=== PATIENT | male | born 1965 | race Caucasian/White ===

== ENCOUNTER → 2021-09-24 15:28 | Outpatient (CLI) | payer MEDICAID, SELFPAY | PROVIDERS: PCP Family Medicine; Visit Provider Family Medicine | DX: Z03.818 Encounter for observation for suspected exposure to other biological agents ruled out (principal) | CPT/HCPCS: 87635; U0005; U0003 ==

== ENCOUNTER 2021-11-19 17:43 | Outpatient (CLI) | payer MEDICAID, SELFPAY | END 2021-11-19 23:59 | disposition short-term general hospital (02) | PROVIDERS: Visit Provider Family Medicine | DX: Z20.822 Contact with and (suspected) exposure to COVID-19 (principal) | CPT/HCPCS: 87635; U0003; U0005 ==

== ENCOUNTER → 2023-02-09 | Outpatient (CLI) | payer MEDICARE, MEDICAID, SELFPAY ==
[2023-02-09 07:36] LABS: Absolute Lymphocyte Count 1.91 X10^3/uL (0.83-4.51); Absolute Neutrophil Count 3.6 X10^3/uL (2.0-7.7); Basophil# 0.05 X10^3/uL; Basophil% 0.8 % (0-1); Eosinophil# 0.23 X10^3/uL; Eosinophils% 3.5 % (0-5); Hematocrit 46.1 % (40-54); Lymphocyte # 1.91 X10^3/ul (0.83-4.51); Lymphocyte % 29.4 % (19-41); Mean Corp Hgb Conc 34.7 g/dL (32-36); Mean Corpuscular Hgb 30.4 pg (27.0-32.0); Mean Corpuscular Volume 87.6 fL (80-94); Mean Platelet Vol. 11.8 fl (6.2-12.0); Monocyte# 0.66 X10^3/uL; Monocyte% 10.2 % (0-10); NRBC Flagged by Analyzer 0 % (0-5); Neutrophil # 3.62 X10^3/uL (2.7-7.7); Neutrophil % 55.8 % (47-70); Platelet Count 159 K/mm3 (150-450); RBC Distribution Width CV 12.6 % (11.6-14.6); RBC Distribution Width SD 39.9 fl (35.1-43.9); Red Blood Count 5.26 M/mm3 (4.6-6.2); White Blood Count 6.5 K/mm3 (4.4-11.0)
[2023-02-09 08:17] LABS: Anion Gap 7 (5-15); BUN 26 mg/dL (7-18); BUN/Creat Ratio 31.2 RATIO (10-20); Calcium,Total 8.9 mg/dL (8.5-10.1); Chloride 99 mmol/L (98-107); Creatinine, Serum 0.83 mg/dL (0.70-1.30); EST Glomerular Filtration Rate 101 mL/min (>60); Est Glom Filt Rate - Afr Amer 123 mL/min (>60); Glucose 328 mg/dL (74-106); PSA,Total - Annual Screen 1.73 ng/mL (0.00-4.00); Potassium 4.2 mmol/L (3.5-5.1); Sodium Level 131 mmol/L (136-145)
[2023-02-09 10:39] LABS: Hemoglobin A1c 10.1 % (3.8-5.6)
== END | disposition home or self-care (01) ==
LOC: LAB 07:00
PROVIDERS: PCP Family Medicine; Referring Provider Family Medicine; Visit Provider Family Medicine
DX: Z00.00 Encounter for general adult medical examination without abnormal findings (principal); Z12.5 Encounter for screening for malignant neoplasm of prostate; I10 Essential (primary) hypertension; E78.00 Pure hypercholesterolemia, unspecified; R73.9 Hyperglycemia, unspecified
CPT/HCPCS: 36415; 80048; 83036; 84153; 85025; G0103

== ENCOUNTER 2023-03-18 06:19 | Day surgery (SDC) | payer MEDICARE, MEDICAID, SELFPAY ==
[2023-03-18] VITALS (7 sets, daily range): BP systolic 88–97; BP diastolic 50–65; PULSE 55–64; RESP 16; TEMP 36.5–36.6; O2SAT 95–97; BMI 31.6
[2023-03-18] MEDS: Lactated Ringers 1,000 ML 15 ML IV (06:48)
[2023-03-18 07:16] LABS: Bedside Glucose 144 mg/dL (74-106)
--- NOTE | 2023-03-18 07:17 | HP.PCM_ITS ---
History and Physical Date of Admission: 03/18/23 Date of Service:? 02/27/23 MR#: [id number] Acct: [id number] Name:? LAMONT MALONE Rep #: [id number] : 1965 ? ? Provider: Dr. Aleah Castano MD Age/Sex:? 57/M ? ? Location: [facility] Status: Signed Intake Vital Signs ? 02/27/2309:44 Height 6 ft 3 in Weight: 256 lb 3 oz BMI 32.0 BP 127/79 H Blood Pressure Location Rt radial Position Sitting Respiration 18 Pulse 60 Pulse Source Monitor Temp 97.7 F L Temp Source Temporal Intake Visit Reasons:?COLONOSCOPY Chief Complaint: colonoscopy Allergies latex Allergy (Verified 01/27/17 16:34) Rash Medications ascorbic acid (vitamin C) 500 mg tablet (Vitamin C) 500 mg PO DAILY@0800 0 06/16/16 [History Confirmed 01/27/17] aspirin 81 mg tablet,delayed release (Adult Low Dose Aspirin) 81 mg PO QHS 06/16/16 [History Confirmed 01/27/17] carvedilol 12.5 mg tablet 12.5 mg PO BID 06/16/16 [History Confirmed 01/27/17] lisinopril 2.5 mg tablet 2.5 mg PO DAILY 06/16/16 [History Confirmed 01/27/17] pravastatin 40 mg tablet 40 mg PO QHS 06/16/16 [History Confirmed 01/27/17] furosemide 20 mg tablet 20 mg PO DAILY PRN PRN EDEMA 01/27/17 [History Confirmed 01/27/17] furosemide 20 mg tablet (Lasix) 20 mg PO Q OTHER DAY 02/27/23 [History Confirmed 02/27/23] metformin 500 mg tablet 500 mg PO DAILY 02/27/23 [History Confirmed 02/27/23] PFSH Medical History?(Updated 02/27/23 @ 10:[address] Aleah Castano MD) Diabetes Heart disease History of congestive heart failure history of pace maker Hypertension Shortness of breath Family History?(Updated 02/27/23 @ 09:44 by Sania Gonzalez) Father Diabetes Social History?(Updated 02/20/19 @ 13:39 by Rachel ESPINAL, PA) Smoking Status:? Former smoker HPI HPI HPI: 57-year-old male presents due to screening colonoscopy.? Patient does have past medical history for cardiac stent, pacemaker in 2009 with replacement battery last March.? And history of ablation in 2011.? Patient is currently not on any blood thinners.? Patient states last colonoscopy was in 2009 states it was negative.? Patient has bowel movements daily denies any blood.? Patient denies any family history of colon cancer.? Patient denies any chronic abdominal pain/nausea/vomiting/reflux. ROS General General: Yes weight change; No appetite, fatigue, colon cancer or breast cancer HEENT HEENT: No difficulty swallowing, eye injury, eye surgery, swollen glands or hoarseness Endo Endocrine: Yes diabetes mellitus; No thyroid disease, thyroid cancer, Hair loss, heat intolerance or cold intolerance Skin Skin: No rash or changing moles Musc Musculoskeletal: No back problems, arthritis, rheumatoid arthritis, gout or joint pain Cardio Cardiovascular: Yes pacemaker, heart disease, atrial fibrillation, high blood pressure, heart attack and heart stent; No murmur, palpitations, shortness of breat with exertion or chest pain Psych Psychiatric: Yes anxiety; No depression or hearing voices Resp Respiratory: Yes shortness of breath, No sleep apnea, No cough, No COPD, No asthma, No emphysema and No wheezing Gastro Gastrointestinal: No abdominal pain, No nausea or vomiting, No diarrhea, No constipation, No blood in stool, No acid reflux, No hemorrhoids, No ulcers, No gallbladder problem and No black,tarry stools [place] Hematologic: No blood thinners, No blood disorders, No bleeding, No anemia and No blood clots Neuro Neurologic: No numbness and No tingling Exam Const General: cooperative, healthy appearing and no acute distress [facility] Head: normal to inspection Chest Other: Left upper chest pacer in place Resp Effort & Inspection: normal respiratory effort Cardio Rate: regular rate GI Inspection: non-distended Palpation: soft, no guarding, no hernias and nontender Skin General: no rashes or lesions noted Neuro General: patient oriented x3 Extrem General: no clubbing, cyanosis or edema Psych Affect: normal affect Assessment and Plan Assessment and Plan (1) Screening for colon cancer: ?Status:?Acute (2) CAD (coronary artery disease): ?Status:?Chronic (3) Heart failure with reduced ejection fraction: ?Status:?Chronic Plan I have discussed the above with the patient. I have offered the patient colonoscopy for evaluation. I have explained the risks/benefits of the procedure and described the procedure.? I have discussed the risks with the patient, including but not limited to:? infection, bleeding, perforation of the GI tract requiring emergency surgery, inability to complete the procedure, injury to any internal organs, complications of anesthesia, etc. - the patient understands and agrees to proceed. I have answered all the patient's questions to the patient's satisfaction and the patient has no further questions. The patient has been given instructions for the colon cleansing preparation. Aleah Castano M.D. Pager: [phone] [facility] [address] [place] [address], [address] [place] [address] Office: [phone] Coding Level of Care Code Off vis,new,level 3 Diagnoses Screening for colon cancer? Z12.11 CAD (coronary artery disease)? I25.10 Heart failure with reduced ejection fraction? I50.20 02/27/23 1009 <Electronically signed by Aleah Castano MD> Date Aleah Castano MD
--- NOTE | 2023-03-18 07:30 | COLBX_PTH ---
PATIENT: LAMONT MALONE LOC: EN U#:[id number] AGE/SX: 57/M ROOM: RE03/18/[address]: Dr. Aleah Castano MD : 1965 BED: DIS: 03/18/2023 SPEC #: [id number] RECD: 03/18/23 10:39 STATUS: JASPRE KRUNAL #: [id number] KATIE: 03/18/23 07:[address]: Aleah Castano DEPT: SURGICAL PATHOLOGY RECD BY: Kraig Butcher ENTERED: 03/18/23 11:41 SP TYPE: COLON BX OTHR DR: Dr. Tuan Watkins, DO Tissues: Transverse colon Procedures: Surgery Specimen Level IV HEADER OPERATION: Colonoscopy (MAC) with polypectomy PRE-OP DIAGNOSIS: Screening TISSUE SUBMITTED: Transverse colon polyp MICROSCOPIC DIAGNOSIS Transverse colon polyp, polypectomy: Fragments of colonic mucosa with increased number of submucosal adipose tissue suggestive of submucosal lipoma. See comment. SJ:matheus 03/19/2023 COMMENT Correlation with clinical, endoscopic findings and appropriate follow up are necessary. MICROSCOPIC DESCRIPTION Slides are reviewed. GROSS DESCRIPTION Received in fixative is one container labeled with the patient's name and designated transverse colon polyp. The specimen consists of multiple irregular fragments of light reagan soft tissue that in aggregate measure 1.5 x 1.5 x 0.2 cm. The specimen is totally submitted in one cassette. / JASMEET:matheus 03/18/2023 TC:5 CPT: 88514
--- NOTE | 2023-03-18 08:03 | OP.COLON_ITS ---
Patient Name: Brody Shanks Procedure Date: 03/18/2023 7:14 AM Date of : 1965 Age: 57 Procedure: Colonoscopy Indications: Screening for colorectal malignant neoplasm Providers: Aleah Castano MD Medicines: Monitored Anesthesia Care Patient Profile: This is a 57 year old male. Last Colonoscopy: more than 10 years ago. Complications: No immediate complications. Procedure: Pre-Anesthesia Assessment: - Prior to the procedure, a History and Physical was performed, and patient medications and allergies were reviewed. The patient's tolerance of previous anesthesia was also reviewed. The risks and benefits of the procedure and the sedation options and risks were discussed with the patient. All questions were answered, and informed consent was obtained. Prior Anticoagulants: The patient has taken aspirin. ASA Grade Assessment: Per anesthesia. After reviewing the risks and benefits, the patient was deemed in satisfactory condition to undergo the procedure. After I obtained informed consent, the scope was passed under direct vision. Throughout the procedure, the patient's blood pressure, pulse, and oxygen saturations were monitored continuously. The Colonoscope was introduced through the anus and advanced to the cecum, identified by the appendiceal orifice, ileocecal valve and palpation. The colonoscopy was performed without difficulty. The patient tolerated the procedure well. The quality of the bowel preparation was good. Scope In: 7:29:31 AM Scope Withdrawal Time 0 hours 16 minutes 34 seconds Scope Out: 7:53:51 AM Total Procedure Duration Time 0 hours 24 minutes 20 seconds Findings: The perianal and digital rectal examinations were normal. A 5 mm polyp was found in the transverse colon. The polyp was semi-pedunculated. The polyp was removed with a hot snare. It was an small lipoma; however there was a small area of the wall which was suspicious for polyp- removed with snare-entire lipoma not removed. Biopsies were taken with a cold forceps for histology. The exam was otherwise without abnormality on direct and retroflexion views. Impression: - One 5 mm polyp in the transverse colon, removed with a hot snare. Biopsied. - The examination was otherwise normal on direct and retroflexion views. Recommendation: - Discharge patient to home. - Resume previous diet. - Continue present medications. - Await pathology results. - Repeat colonoscopy in 5-10 years for surveillance based on pathology results. Procedure Code(s): --- Professional --- 54746, PT, Colonoscopy, flexible; with biopsy, single or multiple Diagnosis Code(s): --- Professional --- Z12.11, Encounter for screening for malignant neoplasm of colon D12.3, Benign neoplasm of transverse colon (hepatic flexure or splenic flexure) CPT copyright 2017 [employer]. All rights reserved. The codes documented in this report are preliminary and upon senior manager review may be revised to meet current compliance requirements. MD Aleah Chan MD 03/18/2023 8:02:47 AM This report has been signed electronically. Number of Addenda: 0 Note Initiated On: 03/18/2023 7:14 AM
--- NOTE | 2023-03-18 08:04 | OP.CCLET_ITS ---
03/18/2023 Tuan Watkins [address] [place] [address] Re : Colonoscopy procedure for Brody Shanks Dear Dr. Watkins This procedure was performed on Saturday, March 18, 2023. My impressions and recommendations are as follows: Impressions : - One 5 mm polyp in the transverse colon, removed with a hot snare. Biopsied. - The examination was otherwise normal on direct and retroflexion views. Recommendations : - Discharge patient to home. - Resume previous diet. - Continue present medications. - Await pathology results. - Repeat colonoscopy in 5-10 years for surveillance based on pathology results. My findings are described in the full procedure note, which is enclosed. If I can be of further assistance, please feel free to contact me at Doctor phone number(s): , Work: . Sincerely, MD Aleah Chan MD 03/18/2023 8:02:47 AM This report has been signed electronically.
== END 2023-03-18 08:51 | disposition home or self-care (01) ==
LOC: EN 06:20 → AC 06:21
PROVIDERS: PCP Family Medicine; Referring Provider Family Medicine; Visit Provider Surgery
PROC: 0DJD8ZZ Inspection of Lower Intestinal Tract, Via Natural or Artificial Opening Endoscopic (ICD-10-PCS; CPT 45378; principal; 2023-03-18 07:25)
DX: Z12.11 Encounter for screening for malignant neoplasm of colon (principal); K63.5 Polyp of colon; I11.0 Hypertensive heart disease with heart failure; I50.22 Chronic systolic (congestive) heart failure; E11.9 Type 2 diabetes mellitus without complications; I25.10 Atherosclerotic heart disease of native coronary artery without angina pectoris; Z79.82 Long term (current) use of aspirin; Z79.84 Long term (current) use of oral hypoglycemic drugs; Z79.899 Other long term (current) drug therapy; Z87.891 Personal history of nicotine dependence; Z95.0 Presence of cardiac pacemaker
CPT/HCPCS: 45385; 82962; 88305; J7120; J2405

== ENCOUNTER → 2024-08-18 | Outpatient (CLI) | payer MEDICARE, SELFPAY ==
[2024-08-18 13:02] LABS: PSA,Total - Annual Screen 2.17 ng/mL (0.00-4.00)
[2024-08-18 13:36] LABS: Microalbumin,Random Urine 5.6 mg/L (NO RANGE EST.); Microalbumin:Creatinine Ratio 9.2 mg/g CRE (<30 mg/g CRE)
== END | disposition home or self-care (01) ==
PROVIDERS: PCP Family Medicine; Referring Provider Family Medicine; Visit Provider Family Medicine
DX: E11.69 Type 2 diabetes mellitus with other specified complication (principal); Z12.5 Encounter for screening for malignant neoplasm of prostate
CPT/HCPCS: 36415; 82043; 82570; 83036; 84153; G0103